=== PATIENT | female | born 1985 | race American Indian/Alaskan Native ===

== ENCOUNTER 2016-06-13 11:46 | Outpatient (CLI) | payer MEDICAID ==
[2016-06-13] MEDS ORDERED: LACTATED RINGERS 500 ML IV ONE ×2 (13:12→18:00)
[2016-06-13 13:48] LABS: Bilirubin,Urine NEG (Negative); Blood,Urine NEG (Negative); Ketones,Urine 80 mg/dL (Negative); Leukocyte Esterase,Urine NEG (Negative); Mucus,Urine 3+ /HPF; Nitrite,Urine NEG (Negative)
[2016-06-13] MEDS ORDERED: LACTATED RINGERS 1,000 ML ONE (16:07)
[2016-06-13] MEDS: BRETHINE SUB-Q SCH ×3 (17:51→18:42)
== END 2016-06-13 19:57 | disposition home or self-care (01) ==
LOC: TRG 11:46
PROVIDERS: ATTEND Obstetrics & Gynecology
DX: O77.9 Labor and delivery complicated by fetal stress, unspecified (principal); O47.9 False labor, unspecified; Z3A.00 Weeks of gestation of pregnancy not specified
CPT/HCPCS: 36415; 59025; 81001; 82731; 96360; 96361; 96372; J3105; J7120